=== PATIENT | male | born 1975 | race Caucasian/White ===

== ENCOUNTER 2017-08-14 18:41 | Emergency (ER) ==
[2017-08-14 18:50] VITALS: BP 147/90; TEMP 98.2; BMI 29.9
[2017-08-14] MEDS ORDERED: LIDOCAINE HCL 1% SDV SUBCUT STA (18:56)
[2017-08-14] MEDS ORDERED: TETANUS DIPHTHERIA TOXOIDS IM ONE (18:57)
[2017-08-14] MEDS ORDERED: LIDOCAINE HCL 1% SDV ONE (18:57)
[2017-08-14] MEDS ORDERED: DOXYCYCLINE HYCLATE PO STA (19:14)
--- NOTE | 2017-08-14 19:19 | ED.PDOC ---
General ED Provider: Dr. FLORENCIO DAUGHERTY-ER Chief Complaint: Finger Laceration Stated Complaint: i was field dressing a deer and cut my finger Time Seen by Physician: 19:00 Mode of Arrival: Walk-In Information Source: Patient Exam Limitations: No limitations Nursing and Triage Documentation Reviewed and Agree: Yes Skin Complaint Exam - Laceration/Abrasion/Hand Complaint/Exam Location of Injury: Left, Digit #5 Mechanism of Injury: Laceration Onset/Duration: 30 min Symptoms Are: Still present Initial Severity: Mild Current Severity: Mild Aggravating: Movement Alleviating: Compression Associated Signs and Symptoms: Denies: Fever, Chills, Erythema, Numbness, Tingling Differential Diagnoses: Laceration Review of Systems - Review Of Systems Constitutional: Reports: No symptoms Eyes: Reports: No symptoms Ears, Nose, Mouth, Throat: Reports: No symptoms Respiratory: Reports: No symptoms Cardiac: Reports: No symptoms GI: Reports: No symptoms : Reports: No symptoms Musculoskeletal: Reports: No symptoms Skin: Reports: No symptoms Neurological: Reports: No symptoms Endocrine: Reports: No symptoms Hematologic/Lymphatic: Reports: No symptoms All Other Systems: Reviewed and Negative Past Medical History - Past Medical History Previously Healthy: Yes Endocrine: Reports: Unknown Cardiovascular: Reports: Unknown Respiratory: Reports: Unknown Hematological: Reports: Unknown Gastrointestinal: Reports: Unknown Genitourinary: Reports: Unknown Neuro/Psych: Reports: None Musculoskeletal: Reports: None Cancer: Reports: None - Surgical History General Surgical History: Reports: Unknown - Family History Family History: Reports: Unknown - Social History Smoking Status: Never smoker Hx Substance Use: No Alcohol Screening: Occasionally - Immunizations Tetanus Shot up to Date: No (unknown) Physical Exam - Physical Exam Appearance: Well-appearing, No pain distress, Well-nourished Eyes: NICOLE, EOMI, Conjunctiva clear ENT: Ears normal, Nose normal, Oropharynx normal Neck: Supple Respiratory: Airway patent, Breath sounds clear, Breath sounds equal, Respirations nonlabored Cardiovascular: RRR, Pulses normal, No rub, No murmur GI/: Soft, Nontender, No masses, Bowel sounds normal, No Organomegaly Musculoskeletal: Normal strength, ROM intact, No edema, No calf tenderness Skin: Warm, Dry, Normal color Neurological: Sensation intact Psychiatric: Affect appropriate, Mood appropriate Procedures - Laceration/Wound Repair No standard instances Wound Description: Irregular Wound Length (cm): 1.5cm Wound Explored: Clean Wound Irrigated: No Wound Prep: Betadine Anesthesia: Lidocaine Wound Repaired With: Sutures Suture Size and Type: 4.0 prolene Number of Sutures: 4 Layer Closure?: No Sterile Dressing Applied?: Yes Splint Applied?: No Sling Applied?: No - Incision and Drainage Site: left 5th digit Critical Care Note - Critical Care Note Total Time (mins): 0 Course - Course Orders, Labs, Meds: Orders Category Date Time Status Doxycycline Hyclate MEDS 08/14/17 19:14 Discontinued 100 mg PO ONCE STA Lidocaine HCl/Pf [Lidocaine HCl 1% Sdv] MEDS 08/14/17 18:57 Discontinued 5 ml .ROUTE .STK-MED ONE Lidocaine HCl/Pf [Lidocaine HCl 1% Sdv] MEDS 08/14/17 18:56 Discontinued 5 ml SUBCUT ONCE STA Tetanus, Diphtheria Tox,Adult [Tetanus Diphtheria MEDS 08/14/17 18:57 Discontinued Toxoids] 0.5 ml IM .ONCE ONE Medications Discontinued Medications Generic Name Dose Route Start Last Admin Trade Name Freq PRN Reason Stop Dose Admin Doxycycline Hyclate 100 mg 08/14/17 19:14 Doxycycline Hyclate PO 08/14/17 19:15 ONCE STA Lidocaine HCl 5 ml 08/14/17 18:56 Lidocaine Hcl 1% Sdv SUBCUT 08/14/17 18:57 ONCE STA Tetanus/Diphtheria Toxoids 0.5 ml 08/14/17 18:57 Tetanus Diphtheria Toxoids IM 08/14/17 18:58 .ONCE ONE Vital Signs: Temp Pulse Resp BP Pulse Ox 08/14/17 18:43 98.2 F 84 20 147/90 H 96 Departure - Departure Time of Disposition: 19:20 Disposition: HOME SELF-CARE Discharge Problem: Laceration of finger Instructions: Laceration (ED), Care For Your Stitches (ED) Condition: Good Pt referred to PMD for follow-up: Yes Additional Instructions: doxycycline 100mg bid x 5 days #10--tylenol for pain relief--sutures out in 7 days--return if any signs of infection Allergies/Adverse Reactions: Allergies No Known Allergies Allergy (Unverified 08/14/17 18:51) Home Medications: Ambulatory Orders 1 [No Reported Medications] 08/14/17 Disposition Discussed With: Patient, Family
== END 2017-08-14 19:35 | disposition home or self-care (01) ==
LOC: ED 18:41
DX: S61.217A Laceration without foreign body of left little finger without damage to nail, initial encounter (principal); W45.8XXA Other foreign body or object entering through skin, initial encounter
CPT/HCPCS: 90471; 90714; 99283